=== PATIENT | male | born 1940 | race Hispanic/Latino ===

== ENCOUNTER 2018-08-12 17:31 | Emergency (ER) | payer OTHER, MEDICARE ==
[2018-08-12] MEDS ORDERED: TRAMADOL HCL 50 MG TABLET ONE (17:55)
== END 2018-08-12 18:19 | disposition home or self-care (01) ==
LOC: EDH 17:31
DX: H72.02 Central perforation of tympanic membrane, left ear (principal); E11.9 Type 2 diabetes mellitus without complications; I10 Essential (primary) hypertension; E78.00 Pure hypercholesterolemia, unspecified; Z95.1 Presence of aortocoronary bypass graft

== ENCOUNTER → 2018-09-27 | Outpatient (CLI) | payer OTHER, MEDICARE | END | disposition home or self-care (01) | LOC: RAH 08:21 | PROVIDERS: ATTEND Urology | DX: N32.89 Other specified disorders of bladder (principal); N40.0 Benign prostatic hyperplasia without lower urinary tract symptoms; K80.20 Calculus of gallbladder without cholecystitis without obstruction; I11.9 Hypertensive heart disease without heart failure; I25.10 Atherosclerotic heart disease of native coronary artery without angina pectoris | CPT/HCPCS: 74176 ==

== ENCOUNTER → 2019-05-30 | Outpatient (CLI) | payer OTHER, MEDICARE | END | disposition home or self-care (01) | LOC: OIH 11:11 | PROVIDERS: ATTEND Family Medicine | DX: J20.0 Acute bronchitis due to Mycoplasma pneumoniae (principal); Z95.0 Presence of cardiac pacemaker; Z98.890 Other specified postprocedural states | CPT/HCPCS: 71046 ==

== ENCOUNTER → 2019-07-03 | Outpatient (CLI) | payer OTHER, MEDICARE | END | disposition home or self-care (01) | LOC: OIH 11:11 | PROVIDERS: ATTEND Family Medicine | DX: M47.816 Spondylosis without myelopathy or radiculopathy, lumbar region (principal); M16.0 Bilateral primary osteoarthritis of hip; K80.20 Calculus of gallbladder without cholecystitis without obstruction; M47.818 Spondylosis without myelopathy or radiculopathy, sacral and sacrococcygeal region | CPT/HCPCS: 71100; 72100; 72220; 73521 ==

== ENCOUNTER 2020-10-06 11:27 | Emergency (ER) | payer OTHER, MEDICARE ==
[~2020-10-06] VITALS: Ht 165.1 cm; Wt 71.2 kg
[2020-10-06 12:07] LABS: APPEARANCE,URINE Clear (CLEAR); BILIRUBIN,URINE Negative (NEGATIVE); COLOR,URINE Yellow (YELLOW); GLUCOSE, URINE (UA) TRACE mg/dL (NEGATIVE); KETONES,URINE Negative (NEGATIVE); LEUKOCYTE ESTERASE ,URINE Negative (NEGATIVE); NITRATE,URINE Negative (NEGATIVE); OCCULT BLOOD,URINE Negative (NEGATIVE); PROTEIN,URINE Negative (NEGATIVE); UROBILINOGEN,URINE 0.2 mg/dL (0.2-1.0)
[2020-10-06 12:18] LABS: BACTERIA,URINE None Seen /HPF (None Seen); RBC,URINE None Seen /HPF (0-1); WBC,URINE None Seen /HPF (0-1)
[2020-10-06] MEDS ORDERED: ONDANSETRON ODT 4MG TAB SL ONE (12:30)
[2020-10-06] MEDS ORDERED: KETOROLAC 30MG VIAL (30MG/ML) IM ONE (12:30)
[2020-10-06 12:40] LABS: BASOPHILS % (AUTO) 0.3 % (0.0-5.0); EOSINOPHILS % (AUTO) 8.4 % (0.0-8.0); LYMPHOCYTES % (AUTO) 22.7 % (21.0-51.0); MEAN CORPUSCULAR HEMOGLOBIN 29.1 pg (27.0-33.0); MEAN CORPUSCULAR HGB CONC 32.4 g/dL (32.0-36.0); MEAN CORPUSCULAR VOLUME 89.8 fL (79-99); MONOCYTES % (AUTO) 11.4 % (3.0-13.0); NEUTROPHILS % (AUTO) 56.9 % (40.0-77.0); PLATELET COUNT (AUTO) 126 K/uL (130-400); RED BLOOD CELL COUNT(AUTO) 4.23 MIL/uL (4.50-6.20); RED CELL DISTRIBUTION WIDTH 14.5 % (11.0-15.5)
[2020-10-06 12:54] VITALS: BP 140/69
[2020-10-06 13:01] LABS: CREATININE 1.3 mg/dL (0.5-1.5)
[2020-10-06 13:05] LABS: ALBUMIN 3.7 g/dL (3.5-5.0); BILIRUBIN,TOTAL 0.2 mg/dL (0.2-1.0)
[2020-10-06] MEDS ORDERED: CYCL10 PO (13:33)
[2020-10-06] MEDS ORDERED: NAPR-1180 PO (13:33)
[2020-10-06 13:36] LABS: EOSINOPHILS % (MANUAL) 8 % (1-6); LYMPHOCYTES % (MANUAL) 18 % (22-44); MONOCYTES % (MANUAL) 15 % (2-9); PLATELET MORPHOLOGY COMMENT ADEQUATE; REACTIVE LYMPHOCYTES 5 % (0-0); SEGMENTED NEUTROPHILS % 55 % (40-70)
[2020-10-06 14:57] VITALS: BP 136/66
== END 2020-10-06 14:10 | disposition home or self-care (01) ==
LOC: EDH 11:27
DX: S39.012A Strain of muscle, fascia and tendon of lower back, initial encounter (principal); I10 Essential (primary) hypertension; E11.9 Type 2 diabetes mellitus without complications; Z79.899 Other long term (current) drug therapy; Z79.1 Long term (current) use of non-steroidal anti-inflammatories (NSAID); X58.XXXA Exposure to other specified factors, initial encounter; Y93.89 Activity, other specified; Y92.89 Other specified places as the place of occurrence of the external cause; Y99.8 Other external cause status
CPT/HCPCS: 36415; 80053; 81001; 83605; 85025; 96372; 99283; J1885

== ENCOUNTER → 2022-09-22 | Outpatient (CLI) | payer OTHER, MEDICARE ==
[~2022-09-22] MED LIST: CYCL10TA16 PO; NAPR-1180 PO
== END | disposition home or self-care (01) ==
LOC: SHCH 09:05
PROVIDERS: ATTEND Internal Medicine Cardiovascular Disease
DX: I87.2 Venous insufficiency (chronic) (peripheral) (principal); I87.1 Compression of vein
CPT/HCPCS: 93970

== ENCOUNTER → 2022-09-25 | Outpatient (CLI) | payer OTHER, MEDICARE ==
[~2022-09-25] MED LIST changes: +REGADENOSON 0.4 MG/5 ML PF SYG IVP ONE
== END | disposition home or self-care (01) ==
LOC: SHCH 07:59
PROVIDERS: ATTEND Internal Medicine Cardiovascular Disease
DX: I25.119 Atherosclerotic heart disease of native coronary artery with unspecified angina pectoris (principal); R07.9 Chest pain, unspecified
CPT/HCPCS: 78452; 96374; 93017; J2785; A9500 ×2

== ENCOUNTER 2023-05-13 08:56 | Day surgery (SDC) | payer OTHER, MEDICARE ==
[2023-05-10 08:59] LABS: BASOPHILS # (AUTO) 0.02 K/uL (0.00-0.20); BASOPHILS % (AUTO) 0.3 % (0.0-5.0); EOSINOPHILS # (AUTO) 0.62 K/uL (0.00-0.70); EOSINOPHILS % (AUTO) 10.4 % (0.0-8.0); HEMATOCRIT 34.6 % (42-54); IMMATURE GRANULOCYTE ABSOLUTE 0.04 K/uL (0-1); LYMPHOCYTES # (AUTO) 0.9 K/uL (1.0-4.8); LYMPHOCYTES % (AUTO) 14.9 % (21.0-51.0); MEAN CORPUSCULAR HEMOGLOBIN 29.8 pg (27.0-33.0); MEAN CORPUSCULAR HGB CONC 32.4 g/dL (32.0-36.0); MONOCYTES # (AUTO) 0.5 K/uL (0.1-1.0); MONOCYTES % (AUTO) 8.4 % (3.0-13.0); NEUTROPHILS # (AUTO) 3.9 K/uL (1.8-7.7); NEUTROPHILS % (AUTO) 65.3 % (40.0-77.0); PLATELET COUNT (AUTO) 191 K/uL (130-400); RED BLOOD CELL COUNT(AUTO) 3.76 MIL/uL (4.50-6.20); RED CELL DISTRIBUTION WIDTH 13.7 % (11.0-15.5)
[2023-05-10 09:12] LABS: CREATININE 1.8 mg/dL (0.5-1.5); INR 1.01 (0.85-1.15); POTASSIUM 4.4 mmol/L (3.5-5.1); PROTHROMBIN TIME 11.7 SEC (9.6-11.6)
[2023-05-10 09:13] LABS: PARTIAL THROMBOPLASTIN TIME 31.5 SEC (26.3-35.5)
[2023-05-10 09:30] VITALS: BP 114/54; PULSE 70; RESP 17
[~2023-05-13] VITALS: Ht 167.6 cm; Wt 71.8 kg
[2023-05-13 08:51] VITALS: BP 136/51; PULSE 73; RESP 16
[~2023-05-13 08:56] MED LIST changes: +ATOR20TA65 PO; +CLOP75TA32 PO; -CYCL10TA16 PO; +FINA5TAB41 PO; +FOLI1 PO; +GLIP1TAB6 PO; +HYDR25TA PO; +ISOS30TA92 PO; +LATA2.5D14 OP; +LOSA100T59 PO; +METO-409 PO; -NAPR-1180 PO; +NITR0.4T50 SL; +PIOG30TA70 PO; -REGADENOSON 0.4 MG/5 ML PF SYG IVP ONE
[2023-05-13] MEDS: 0.9%NACL 1000ML 1,000 ML IV ONE (10:09)
[2023-05-13] MEDS ORDERED: IOHEXOL-350 50ML VIAL IV ONE (12:54)
[2023-05-13] MEDS ORDERED: CEFAZOLIN SODIUM 1 GM VIAL ONE (12:54)
[2023-05-13] MEDS ORDERED: MEPERIDINE-PF 25 MG/ML SYG ONE ×3 (12:54→13:58)
[2023-05-13] MEDS ORDERED: MIDAZOLAM HCL 1 MG/ML 2ML VIAL ONE ×2 (12:54→13:28)
[2023-05-13] MEDS ORDERED: LIDOCAINE HCL 1% MDV 50ML VIAL ONE (12:54)
[2023-05-13] MEDS ORDERED: BUPIVACAINE/PF 0.25% 30ML VIAL IJ ONE (13:08)
[2023-05-13] MEDS ORDERED: BACITRACIN 1 EACH PACKET TP ONE (13:31)
[2023-05-13] MEDS ORDERED: TRAM50TA4 PO (14:15)
[2023-05-13] MEDS ORDERED: ACETAMINOPHEN 500 MG TABLET PO PRN (14:30)
[2023-05-13] MEDS ORDERED: ACETAMINOPHEN WITH CODEINE 1 TAB TAB PO PRN (14:30)
[2023-05-13 14:35] VITALS: BP 98/52; PULSE 72; RESP 13
[2023-05-13 14:50] VITALS: BP 90/53; PULSE 71; RESP 16
[2023-05-13 15:05] VITALS: BP 91/58; PULSE 70; RESP 10
[2023-05-13 15:20] VITALS: BP 107/52; PULSE 72; RESP 14
[2023-05-13 15:50] VITALS: BP 111/60; PULSE 71; RESP 14
== END 2023-05-13 16:10 | disposition home or self-care (01) ==
LOC: DAH 08:56
PROVIDERS: ATTEND Internal Medicine Cardiovascular Disease
DX: Z45.010 Encounter for checking and testing of cardiac pacemaker pulse generator [battery] (principal); I49.5 Sick sinus syndrome; I87.1 Compression of vein; I10 Essential (primary) hypertension; E78.5 Hyperlipidemia, unspecified; E11.9 Type 2 diabetes mellitus without complications; Z79.899 Other long term (current) drug therapy; Z79.01 Long term (current) use of anticoagulants; Z98.890 Other specified postprocedural states; Z95.1 Presence of aortocoronary bypass graft; Z82.49 Family history of ischemic heart disease and other diseases of the circulatory system; Z83.3 Family history of diabetes mellitus; Z80.0 Family history of malignant neoplasm of digestive organs; Z79.84 Long term (current) use of oral hypoglycemic drugs
CPT/HCPCS: 80048; 85025; 85610; 85730; 36415; 93005; 33228; 82948 ×2; C1785; J0690; J7030; J0665; J2250 ×2; J2175 ×3; J3490; A4215; A6251; A4222; A4221; A4663; A4216; A6258; A4606; A4223 ×3; 99156; 99157; Q9967

== ENCOUNTER → 2023-12-14 | Outpatient (CLI) | payer OTHER, MEDICARE ==
[~2023-12-14] MED LIST changes: +TRAM50TA4 PO
== END | disposition home or self-care (01) ==
LOC: SHCH 11:02
PROVIDERS: ATTEND Internal Medicine Cardiovascular Disease
DX: I25.810 Atherosclerosis of coronary artery bypass graft(s) without angina pectoris (principal); R06.09 Other forms of dyspnea; R60.9 Edema, unspecified
CPT/HCPCS: 93306

== ENCOUNTER → 2025-01-03 | Outpatient (CLI) | payer OTHER, MEDICARE ==
[~2025-01-03] MED LIST changes: -LATA2.5D14 OP; +LATA2.5D7 OP
[2025-01-03 22:15] VITALS: PULSE 70; RESP 12
[2025-01-03 22:37] VITALS: PULSE 72; RESP 14
[2025-01-03 23:04] VITALS: PULSE 69; RESP 10
[2025-01-03 23:34] VITALS: PULSE 66; RESP 12
[2025-01-04] VITALS (11 sets, daily range): PULSE 62–94; RESP 12–15
== END | disposition home or self-care (01) ==
LOC: SLP 20:30
PROVIDERS: ATTEND Family Medicine
DX: G47.33 Obstructive sleep apnea (adult) (pediatric) (principal); R06.83 Snoring
CPT/HCPCS: 95810